=== PATIENT | female | born 1975 | race Hispanic/Latino ===

== ENCOUNTER 2018-03-01 13:04 | Outpatient (CLI) | payer BC ==
--- NOTE | 2018-03-01 14:40 | ULT ---
LIMITED BILATERAL BREAST ULTRASOUND: Date: 03/01/18 PROVIDED CLINICAL HISTORY: Bilateral breast palpable abnormalities. FINDINGS: Limited sonographic interrogation of the right breast was performed in the region of palpable concern . There is an ill-defined, hypoechoic, shadowing mass present measuring at least 3.4 cm at the 9:30 p osition of the right breast, corresponding to the area of mammographic abnormality as well. Sonograph ic interrogation of the right axilla demonstrates nonenlarged lymph nodes. Limited sonographic interrogation of the left breast in the region of palpable concern demonstrates n o sonographic abnormality. IMPRESSION: 1. BIRADS Category 5 - Highly suspicious for malignancy. Ultrasound guided breast biopsy is recommen ded on the right for 9:30 breast mass. 2. No sonographic or mammographic abnormality is evident in the region of palpable concern on the le ft. Negative imaging findings should not preclude further evaluation of a clinically suspicious area in this breast. The patient is referred back to her clinician. Findings and recommendations discussed with the patient and questions answered. POS: OFF
== END 2018-03-01 13:05 | disposition home or self-care (01) ==
LOC: BICMAMMO 13:04
PROVIDERS: ATTEND Obstetrics & Gynecology
DX: N63.10 Unspecified lump in the right breast, unspecified quadrant (principal); N63.20 Unspecified lump in the left breast, unspecified quadrant
CPT/HCPCS: 77066; G0279

== ENCOUNTER → 2018-03-12 | Day surgery (SDC) | payer BC ==
--- NOTE | 2018-03-12 14:51 | ULT ---
ULTRASOUND DIRECTED RIGHT BREAST BIOPSY: History: Irregular right breast mass is associated with pleomorphic calcifications demonstrated at the 9:30 po sition right breast. FINDINGS: Real-time imaging of the area of concern shows a very ill-defined mass. The exact dimensions are diff icult but measure at least 2.7 cm in dimension. After informed consent was obtained, the patient was prepped and draped in normal sterile fashion. Lo katlyn anesthesia was obtained with 1% Xylocaine mixed with sodium bicarb. A 14 gauge biopsy gun was use d for a series of three core biopsies. Subsequently, a biopsy clip was deployed. A post biopsy mammog anni showed good positioning of the clip within the mass. The needle was withdrawn and hemostatis was obtained. The patient tolerated the procedure well without any immediate complications. IMPRESSION: Ultrasound directed biopsy of right breast mass as described above. POS: OFF
== END ==
LOC: BICULT 12:44
PROVIDERS: ATTEND Obstetrics & Gynecology
PROC: 0HBT3ZX Excision of Right Breast, Percutaneous Approach, Diagnostic (ICD-10-PCS; principal; 2018-03-12)
DX: C50.411 Malignant neoplasm of upper-outer quadrant of right female breast (principal)
CPT/HCPCS: 19100; 76942; 88305

== ENCOUNTER 2018-03-28 09:00 | Outpatient (CLI) | payer BC ==
--- NOTE | 2018-03-28 10:26 | CT ---
CONTRAST ENHANCED CT IMAGES OF THE CHEST, ABDOMEN, AND PELVIS: History: Breast cancer. Technique: Contrast enhanced CT images of the chest, abdomen, and pelvis obtained after administratio n of IV and oral contrast. FINDINGS: The lung parenchyma is unremarkable with no evidence of masses or lesions. No evidence of pleural or pericardial effusions seen. No evidence of mediastinal, axillary or hilar lesions seen. The osseous lesions are unremarkable. CT ABDOMEN/PELVIS: The liver, spleen, gallbladder, pancreas, adrenal glands and kidneys are unremarkable. No dilated loops of bowel seen. Normal appendix is visualized. The colon demonstrates no evidence of masses or lesions. The pelvis is unremarkable. IMPRESSION: Normal contrast enhanced CT images of the chest, abdomen, and pelvis. POS: [facility]
== END 2018-03-28 09:01 | disposition home or self-care (01) ==
LOC: BICCT 09:00
PROVIDERS: ATTEND Internal Medicine Hematology & Oncology
DX: C50.919 Malignant neoplasm of unspecified site of unspecified female breast (principal)
CPT/HCPCS: 71260; 74177

== ENCOUNTER 2018-04-08 06:11 | Outpatient (CLI) | payer BC ==
[2018-04-08 09:58] LABS: #Basophils 0.1 thou/uL (0.0-0.2); #Eosinphils 0.1 thou/uL (0.0-0.7); #Lymphocytes 1.2 thou/uL (1.20-3.40); #Monocytes 0.7 thou/uL (0.11-0.59); #Neutrophils 3.4 thou/uL (1.40-6.50); %Basophils 0.9 % (0.0-1.0); %Eosinophils 1.4 % (0.0-10.0); %Lymphocytes 22.2 % (21.0-51.0); %Monocytes 12.4 % (0.0-10.0); Hemoglobin 13.2 g/dL (12.0-16.0); Mean Corpuscular Hemoglobin 28.1 pg (27.0-31.0); Mean Corpuscular Volume 82.7 fL (78.0-98.0); Mean Platelet Volume 6.9 fL (7.4-10.4); Platelet Count 322 thou/uL (130-400); RBC Distribution Width 12.7 % (11.5-14.5); Red Blood Cell (RBC) Count 4.71 mill/uL (4.20-5.40); White Blood Cell (WBC) Count 5.4 thou/uL (4.8-10.8)
[2018-04-08 10:17] LABS: Anion Gap 13 mmol/L (10-20); BUN (Urea Nitrogen) 9 mg/dL (7.0-18.7); Calc. Creatinine Clearance 0 mL/min (70-130); Calcium 9.6 mg/dL (7.8-10.44); Carbon Dioxide 23 mmol/L (22-29); Chloride 102 mmol/L (98-107); Estimated GFR-MDRD Greater than 90; Glucose 90 mg/dL (70-105); Potassium 4.1 mmol/L (3.5-5.1); Sodium 134 mmol/L (136-145)
== END 2018-04-08 06:12 | disposition home or self-care (01) ==
LOC: LABBT 06:11
PROVIDERS: ATTEND Surgery
DX: Z01.812 Encounter for preprocedural laboratory examination (principal); C50.911 Malignant neoplasm of unspecified site of right female breast
CPT/HCPCS: 80048; 85025

== ENCOUNTER 2018-04-11 07:00 | Day surgery (SDC) | payer BC ==
[2018-04-08 08:25] VITALS: BMI 30.7
[2018-04-11] MEDS ORDERED: CEFAZOLIN 2 GM/50 ML BAG ONE (10:39)
--- NOTE | 2018-04-11 11:09 | NM ---
RADIONUCLIDE LYMPHOSCINTIGRAPHY RIGHT BREAST: HISTORY: Right breast cancer. FINDINGS: After explaining the procedure and answering all questions, a sterile technique was then used to inje ct into the dermis a total volume of 1 mL containing 434 millicuries technetium 99m filtered sulfur c olloid, at the 12 o'clock, 3 o'clock, 6 o'clock, and 9 o'clock periareolar positions of the right raffaele ast. Injection sites were massaged by the patient, and imaging was performed. At 1 hour, a focus of uptake overlies the axillary tail of the right breast. The skin overlying the lymph node was marked , and the patient was sent to day surgery in good condition. IMPRESSION: Technically successful lymphoscintigraphy, revealing sentinel lymph node at the right axillary tail. POS: [facility]
[2018-04-11] MEDS ORDERED: Bupivacaine/Epinephrine 0.25% 30 ML VIAL ONE (11:51)
[2018-04-11] MEDS ORDERED: Lidocaine 2% PF 5 ML VIAL ONE (11:51)
--- NOTE | 2018-04-11 11:53 | MMO ---
MAMMOGRPAHIC GUIDED NEEDLE LOCALIZATION RIGHT BREAST MASS: HISTORY: Right breast cancer. FINDINGS: After explaining the procedure and answering all questions, the localization clip and mass at the lat eral aspect of the right breast were visualized. Sterile technique, buffered local anesthesia, mammo graphic guidance, and a lateral approach were used to carefully advance a 7.5 cm [place] needle and wir e through the posterior aspect of the mass, medially deep to the localization clip. The clip lies ap proximately 1 cm from the needle tip. the wire was deployed to hold position. Final images were obt ained and sent with the patient for day surgery. The patient tolerated the procedure well and was tr ansferred in good condition. IMPRESSION: Technically successful needle localization right breast mass. POS: [facility]
[2018-04-11] MEDS ORDERED: Fentanyl 100 MCG/2 ML VIAL ONE ×2 (12:10→13:50)
[2018-04-11] MEDS ORDERED: Ondansetron PF 4 MG/2 ML Vial ONE (13:03)
[2018-04-11] MEDS ORDERED: PROPOFOL 200 MG/20 ML VIAL ONE (13:03)
[2018-04-11] MEDS ORDERED: Ketorolac Tromethamine 30 MG/ML VIAL ONE (13:03)
[2018-04-11] MEDS ORDERED: Dexamethasone 20 MG/5 ML VIAL ONE (13:03)
[2018-04-11] MEDS ORDERED: Lidocaine 1% PF 5 ML VIAL ONE (13:03)
[2018-04-11] MEDS ORDERED: Morphine 4 MG/ML VIAL ONE (14:08)
[2018-04-11] MEDS ORDERED: Morphine 2 MG/ML SYRINGE ONE (14:29)
--- NOTE | 2018-04-11 14:36 | MMO ---
SURGICAL SPECIMEN MAMMOGRAPHY: HISTORY: Right breast cancer. FINDINGS: Mammographic evaluation of surgical specimen obtained by Dr. Mckenzie shows the localization wire, the biopsy clip, and microcalcifications to be present within the specimen. POS: [facility]
--- NOTE | 2018-04-12 12:47 | OP ---
DATE OF PROCEDURE: 04/11/2018 PREOPERATIVE DIAGNOSIS: Right breast invasive ductal cell carcinoma, clinical stage T2 N0 Mx. POSTOPERATIVE DIAGNOSIS: Right breast invasive ductal cell carcinoma, clinical stage T2 N0 Mx. PROCEDURES PERFORMED: 1. Right partial mastectomy after needle localization. 2. Right deep axillary node biopsy (sentinel node protocol). ANESTHESIA: General. ESTIMATED BLOOD LOSS: Minimal. COMPLICATIONS: None. SPECIMENS: 1. There were two sentinel nodes obtained. 2. Right breast mass marked with two short superior, one long lateral, sent to Path for final diagnosis. Additional medial margin of tissue is obtained. DESCRIPTION OF PROCEDURE: The patient underwent preoperative placement of needle localization wire and had lymphoscintigraphy performed, which showed uptake in the right axilla, taken to the operating room and her right breast, chest, arm, and axilla were prepped and draped in a sterile fashion. A 5 mL of methylene blue dye had been infiltrated under the nipple and massaged for 5 minutes before the procedure. Incision was made on the inferior hairline of the right axilla. Clavipectoral fascia was entered using the Neoprobe. Two sentinel nodes were found with high counts on the back table. The background count dropped to near zero. These were sent for final pathology. The wound was irrigated. Local anesthetic was applied. The right axillary incision was closed using 3-0 Vicryl, 4-0 Monocryl, and Dermabond. Next, a periareolar incision was made in the right breast. Flaps were raised superior, inferior, medially, and laterally around the needle localization wire. Specimen was marked and sent to x-ray, which revealed previous biopsy clip to be in the specimen. It was then sent to Path for final diagnosis. Because there was persistent fibrous type tissue present on the medial aspect of the biopsy cavity, additional medial margin was performed with stitch placed on new margin and sent to Path for final diagnosis. The wound was irrigated. Local anesthetic was applied. The wound was closed in 3-0 Vicryl, 4-0 Monocryl, and Dermabond. The patient was then returned to Recovery in stable condition. All instrument counts, needle counts, and lap counts were correct. Job ID: [id number]
== END 2018-04-11 17:00 | disposition home or self-care (01) ==
LOC: SDC 07:00
PROVIDERS: ATTEND Surgery
PROC: 07B50ZX Excision of Right Axillary Lymphatic, Open Approach, Diagnostic (ICD-10-PCS; principal; 2018-04-11)
PROC: 0HBT0ZZ Excision of Right Breast, Open Approach (ICD-10-PCS; principal; 2018-04-11)
DX: C50.411 Malignant neoplasm of upper-outer quadrant of right female breast (principal); C77.3 Secondary and unspecified malignant neoplasm of axilla and upper limb lymph nodes; E78.00 Pure hypercholesterolemia, unspecified; Z17.0 Estrogen receptor positive status [ER+]; Z79.899 Other long term (current) drug therapy
CPT/HCPCS: 19281; 76098; 78195; 88307; 88342; 96374; A9541; J1100; J1885; J2001; J2270; J2405; J2704; J3010; Q9968

== ENCOUNTER 2018-04-26 12:43 | Day surgery (SDC) | payer BC ==
[2018-04-25 11:24] VITALS: BMI 31.1
[2018-04-26] MEDS ORDERED: CEFAZOLIN 2 GM/50 ML BAG ONE (13:09)
[2018-04-26] MEDS ORDERED: Bupivacaine HCl 0.5%/Epinephrine 1:200,000/PF 30 ml Vial ONE (13:58)
[2018-04-26] MEDS ORDERED: Lidocaine 2% PF 5 ML VIAL ONE (13:58)
[2018-04-26] MEDS ORDERED: Fentanyl 100 MCG/2 ML VIAL ONE (14:01)
[2018-04-26] MEDS ORDERED: Midazolam HCl 2 mg/2 ml Vial ONE (14:01)
--- NOTE | 2018-04-26 15:36 | OP ---
DATE OF PROCEDURE: 04/26/2018 PREOPERATIVE DIAGNOSIS: Breast cancer. POSTOPERATIVE DIAGNOSIS: Breast cancer. PROCEDURE: Tunnelled central line subcutaneous port (MediPort CT injectable). ANESTHESIA: General. ESTIMATED BLOOD LOSS: Minimal. COMPLICATIONS: None. SPECIMENS: None. FINDINGS: Tip of the catheter was at the atriocaval junction. DESCRIPTION OF PROCEDURE: The patient was taken to the operating room and laid supine on the operating room table. After general anesthetic was obtained, bilateral neck and chest was prepped and draped in a sterile fashion. Local anesthetic was infiltrated over the left internal jugular vein. Internal jugular vein was cannulated using a 22-gauge finder needle followed by a Seldinger needle. Wire was passed into the superior vena cava under fluoro guidance, small aneudy was made at the wire entrance site. A separate 3-cm incision was made in the left upper chest. Subcutaneous pocket was made below the lower incision. Tubing from the MediPort tunneled from the inferior to the superior incision and suture sheath was placed over the wire into the superior vena cava under fluoro guidance. The dilator and wire were removed and the catheter was sewn into the sheath. The sheath was peeled away. The tip of the catheter was at the atriocaval junction. The MediPort tubing cut to fit the MediPort at the lower incision, connected to the MediPort, the MediPort was sewn to the chest wall in the subcutaneous pocket using Prolene. MediPort flushes and draws blood without difficulty. It was flushed with a heparin flush. The wounds were irrigated and closed using 3-0 Vicryl, 4-0 Monocryl, and Dermabond. The patient was then sent to Recovery in stable condition. All instrument counts, needle counts, and lap counts were correct. Job ID: [id number]
[2018-04-26] MEDS ORDERED: HYDROcodone/Acetaminophen 5/325 mg Tablet ONE (16:02)
--- NOTE | 2018-04-26 16:39 | RAD ---
PORTABLE AP CHEST: Date: 04/26/18 HISTORY: Post MediPort placement. COMPARISON: None available. FINDINGS: A left internal jugular vein MediPort catheter is noted in place with tip overlying the distal SVC. A portion of the MediPort catheter is not visualized in the lower neck. There is no pneumothorax seen. There are linear densities in left lung base, which could be related to atelectasis, but follow-up i s suggested. No pleural effusion is seen. The right lung is clear. The cardiac silhouette is magnifie d by projection. Osseous structures are intact. There is linear scarring versus atelectasis in the ri t lung apex. IMPRESSION: 1. Left internal jugular vein MediPort catheter in place without evidence of a pneumothorax. 2. Linear densities at the left lung base which may be related to mild atelectasis or scarring. Ther e is probably minimal scarring in the right lung apex. POS: [facility]
== END 2018-04-26 16:50 | disposition home or self-care (01) ==
LOC: SDC 12:43
PROVIDERS: ATTEND Surgery
PROC: 0JH63WZ Insertion of Totally Implantable Vascular Access Device into Chest Subcutaneous Tissue and Fascia, Percutaneous Approach (ICD-10-PCS; principal; 2018-04-26)
DX: C50.911 Malignant neoplasm of unspecified site of right female breast (principal); C77.9 Secondary and unspecified malignant neoplasm of lymph node, unspecified; E78.00 Pure hypercholesterolemia, unspecified; Z17.0 Estrogen receptor positive status [ER+]; Z79.899 Other long term (current) drug therapy
CPT/HCPCS: 71045; C1788; J0670; J1642; J2001; J2250; J3010

== ENCOUNTER 2018-08-13 03:35 | Outpatient (CLI) | payer BC ==
[2018-08-13 09:39] LABS: #Basophils 0.1 thou/uL (0.0-0.2); #Eosinphils 0.1 thou/uL (0.0-0.7); #Lymphocytes 1.5 thou/uL (1.20-3.40); #Monocytes 0.4 thou/uL (0.11-0.59); #Neutrophils 2.6 thou/uL (1.40-6.50); %Basophils 1.2 % (0.0-1.0); %Eosinophils 1.2 % (0.0-10.0); %Lymphocytes 32.8 % (21.0-51.0); %Monocytes 8.4 % (0.0-10.0); %Neutrophils 56.5 % (42.0-75.0); Hemoglobin 12.3 g/dL (12.0-16.0); Mean Corpuscular HGB CONC 33.4 g/dL (32.0-36.0); Mean Corpuscular Hemoglobin 28.9 pg (27.0-31.0); Mean Corpuscular Volume 86.3 fL (78.0-98.0); Mean Platelet Volume 6.8 fL (7.4-10.4); Platelet Count 306 thou/uL (130-400); RBC Distribution Width 14.5 % (11.5-14.5); Red Blood Cell (RBC) Count 4.28 mill/uL (4.20-5.40); White Blood Cell (WBC) Count 4.6 thou/uL (4.8-10.8)
[2018-08-13 09:58] LABS: Anion Gap 13 mmol/L (10-20); BUN (Urea Nitrogen) 10 mg/dL (7.0-18.7); Calc. Creatinine Clearance 0 mL/min (70-130); Carbon Dioxide 25 mmol/L (22-29); Chloride 105 mmol/L (98-107); Estimated GFR-MDRD Greater than 90; Glucose 105 mg/dL (70-105); Potassium 3.6 mmol/L (3.5-5.1); Sodium 139 mmol/L (136-145)
== END 2018-08-13 03:36 | disposition home or self-care (01) ==
LOC: LABBT 03:35
PROVIDERS: ATTEND Surgery
DX: Z01.812 Encounter for preprocedural laboratory examination (principal); C50.919 Malignant neoplasm of unspecified site of unspecified female breast
CPT/HCPCS: 80048; 85025

== ENCOUNTER 2018-08-20 06:02 | Inpatient (IN) | payer BC ==
[2018-08-13 08:24] VITALS: BMI 32.9
[2018-08-20] MEDS ORDERED: Midazolam HCl 2 mg/2 ml Vial ONE ×2 (06:27→07:02)
[2018-08-20] MEDS ORDERED: Fentanyl 250 MCG/5 ML VIAL ONE (06:27)
[2018-08-20] MEDS ORDERED: Promethazine HCl 25 MG/ML VIAL SLOW IVP PRN (09:09)
[2018-08-20] MEDS ORDERED: Promethazine HCl 25 MG/ML VIAL IM PRN ×2 (09:09→09:43)
[2018-08-20] MEDS ORDERED: Ondansetron HCl/PF 4 MG/2 ML Vial IVP PRN (09:09)
[2018-08-20] MEDS ORDERED: Morphine 4 MG/ML VIAL SLOW IVP PRN (09:43)
[2018-08-20] MEDS ORDERED: Ondansetron PF 4 MG/2 ML Vial IVP PRN (09:43)
[2018-08-20] MEDS ORDERED: Dextrose 50% Abboject 50 ML SYRINGE SLOW IVP PRN (09:43)
[2018-08-20] MEDS ORDERED: hydrALAZINE 20 MG/ML VIAL SLOW IVP PRN (09:43)
[2018-08-20] MEDS ORDERED: Dextrose 5% in Water 1,000 ML IV PRN (09:43)
[2018-08-20] MEDS ORDERED: HYDROcodone/Acetaminophen 7.5/325 mg Tablet PO PRN ×2 (09:43)
[2018-08-20] MEDS ORDERED: Morphine 2 MG/ML SYRINGE SLOW IVP PRN (09:43)
[2018-08-20] MEDS ORDERED: Fentanyl 100 MCG/2 ML VIAL ONE (09:47)
--- NOTE | 2018-08-20 10:32 | OP ---
DATE OF PROCEDURE: 08/20/2018 PREOPERATIVE DIAGNOSIS: Local invasive right breast cancer, status post neoadjuvant chemotherapy. POSTOPERATIVE DIAGNOSIS: Local invasive right breast cancer, status post neoadjuvant chemotherapy. PROCEDURE PERFORMED: Bilateral simple mastectomy. ANESTHESIA: General. COMPLICATIONS: None. SPECIMENS: Right breast marked with two short superior and one long lateral. Left breast marked with two short superior and one long lateral. Additional margin where the previous lumpectomy cavity touched the pectoralis muscle was taken with stitch on new margin. DESCRIPTION OF PROCEDURE: The patient was taken to the operating room and laid supine on the operating room table. After general anesthetic was obtained, bilateral chest, axilla, and arm were prepped and draped in a sterile fashion. An elliptical incision was performed on the left to ellipse out the nipple-areolar complex. Flaps were raised superior to the clavicle, medially to the sternum, inferior to inframammary fold, and laterally to latissimus dorsi muscle. The breast tissue was rotated off the chest wall. The pectoralis major fascia was taken with the specimen. All perforators were cauterized. Meticulous hemostasis was obtained. The chest cavity was irrigated. A 19 round drain was brought out through a separate stab incision, sewn in place using 2-0 silk. The incision was closed using 3-0 Vicryl, 4-0 Monocryl, and Dermabond. Next, a similar incision was made in the right chest to ellipse out the previous incision and the nipple-areolar complex. Again, flaps were raised superior to the clavicle, medially to the sternum, inferior to inframammary arch, and laterally to latissimus dorsi muscle. The breast was rotated off the chest wall with the pectoralis fascia left with the specimen. In the area posterior to previous lumpectomy, there was some scar tissue type changes abutting the muscle. In this area, the muscle was removed. A stitch was placed on the new margin and it was sent separate as final posterior margin. The breast cavity was irrigated. Meticulous hemostasis was obtained. A 19 round drain brought out through a separate stab incision, left in the breast cavity, sewn in place using silk. The breast was closed using 3-0 Vicryl, 4-0 Monocryl, and Dermabond. The patient was sent to Recovery in stable condition. All instrument counts, needle counts, and lap counts were correct. Job ID: [id number]
[2018-08-20] MEDS ORDERED: Glycopyrrolate 0.2 MG/ML 5 ML SYRINGE ONE (11:35)
[2018-08-20] MEDS ORDERED: Rocuronium Bromide 10 MG/ML (10ML VIAL) ONE (11:35)
[2018-08-20] MEDS ORDERED: PROPOFOL 200 MG/20 ML VIAL ONE (11:35)
[2018-08-20] MEDS ORDERED: Dexamethasone 20 MG/5 ML VIAL ONE (11:35)
[2018-08-20] MEDS ORDERED: Ketorolac Tromethamine 30 MG/ML VIAL ONE (11:35)
[2018-08-20] MEDS ORDERED: Ondansetron PF 4 MG/2 ML Vial ONE (11:35)
[2018-08-20] MEDS ORDERED: Lidocaine 1% PF 5 ML VIAL ONE (11:35)
[2018-08-20] MEDS: Sodium Chloride 0.9% 1,000 ML IV SCH (12:04)
[2018-08-20] MEDS ORDERED: Atorvastatin Calcium 20 MG TAB PO SCH (21:00)
[2018-08-20] MEDS: Famotidine 20 MG TAB PO SCH (21:22)
[2018-08-21] MEDS: Sodium Chloride 0.9% 1,000 ML IV SCH (00:25)
[2018-08-21] MEDS: Famotidine 20 MG TAB PO SCH (09:36)
[2018-08-21 11:10] VITALS: BP 136/68; TEMP 98.6
--- NOTE | 2018-08-22 02:30 | DIS ---
DATE OF ADMISSION: 08/20/2018 DATE OF DISCHARGE: 08/21/2018 ADMITTING DIAGNOSIS: Right breast cancer. DISCHARGE DIAGNOSES: Right breast cancer. PROCEDURE: Bilateral simple mastectomy by Dr. Mckenzie without complications. CONDITION ON DISCHARGE: Improved. STAFF: Narendra Mckenzie MD HOSPITAL COURSE: On postop day 1, the patient's pain is controlled. She is discharged home. She will follow up with me in 1 week for drain removal. Prescriptions for [place] and Zofran sent to [facility]. Job ID: [id number]
== END 2018-08-21 11:39 | disposition home or self-care (01) | DRG 583 ==
LOC: SDC 06:02 → 3SE 09:59
PROVIDERS: ADMIT Surgery; ATTEND Surgery
PROC: 0HBV0ZZ Excision of Bilateral Breast, Open Approach (ICD-10-PCS; principal; 2018-08-20)
DX: C50.911 Malignant neoplasm of unspecified site of right female breast (principal); Z92.21 Personal history of antineoplastic chemotherapy
CPT/HCPCS: 88307; 88341; 88342; J0131; J0690; J1100; J1885; J2001; J2250; J2405; J2704; J3010

== ENCOUNTER 2019-05-09 07:26 | Outpatient (CLI) | payer BC ==
--- NOTE | 2019-05-09 11:02 | CT ---
CT SCAN OF THE CHEST WITH IV CONTRAST CT SCAN OF THE ABDOMEN WITH IV CONTRAST: HISTORY: Breast cancer. Primary malignant neoplasm upper outer quadrant of the right female breast. COMPARISON: 03/28/2018. FINDINGS: No evidence of mediastinal, hilar, axillary, or internal mammary mass or lymphadenopathy is seen. No pleural or pericardial effusions are identified. There is scarring in the peripheral aspect of the right upper lobe. There are small patchy areas of reticulonodular infiltrates in the posteromedial a spects of the lower lobes. The liver, spleen, pancreas, adrenal glands, and kidneys are normal. No calcified gallstones are see n. No free air, free fluid, or lymphadenopathy is seen in the abdomen. The small bowel loops are no t abnormally dilated. Uterus is present. No osteolytic or osteoblastic lesions are seen. IMPRESSION: Mild patchy reticulonodular infiltrates in the lower lobes, otherwise unremarkable exam. POS: [facility]
[2019-05-09] MEDS ORDERED: Iopamidol-370 76% 500 ML 1 ML ONE (11:56)
== END 2019-05-09 07:27 | disposition home or self-care (01) ==
LOC: BICCT 07:26
PROVIDERS: ATTEND Internal Medicine Hematology & Oncology
DX: C50.411 Malignant neoplasm of upper-outer quadrant of right female breast (principal); R91.8 Other nonspecific abnormal finding of lung field
CPT/HCPCS: 71260; 74160

== ENCOUNTER 2019-11-19 07:34 | Outpatient (CLI) | payer BC, OTHER ==
[2019-11-19 11:26] LABS: Hemoglobin 12.9 g/dL (12.0-16.0); Mean Corpuscular HGB CONC 32.3 g/dL (32.0-36.0); Mean Corpuscular Hemoglobin 27.2 pg (27.0-31.0); Mean Corpuscular Volume 84.2 fL (78.0-98.0); Mean Platelet Volume 7.2 fL (7.4-10.4); Platelet Count 314 thou/uL (130-400); RBC Distribution Width 12.2 % (11.5-14.5); Red Blood Cell (RBC) Count 4.75 mill/uL (4.20-5.40); White Blood Cell (WBC) Count 4.3 thou/uL (4.8-10.8)
[2019-11-19 11:42] LABS: BHCG - Serum Negative (NEGATIVE); Pregs Control Background? CLEAR/WHITE (CLR/WHITE); Pregs Control Bar Appear? YES (CONTROL BAR)
[2019-11-19 17:22] LABS: SARS-CoV-2 MS2 Positive; SARS-CoV-2 N Gene Negative; SARS-CoV-2 S Gene Negative; SARS-CoV-2 by NAA Not Detected (NotDetected); SARS-CoV-2 orf1ab Negative
== END 2019-11-19 07:35 | disposition home or self-care (01) ==
LOC: LABBT 07:34
PROVIDERS: ATTEND Obstetrics & Gynecology
DX: Z01.812 Encounter for preprocedural laboratory examination (principal); Z20.828 Contact with and (suspected) exposure to other viral communicable diseases; Z17.0 Estrogen receptor positive status [ER+]; Z85.3 Personal history of malignant neoplasm of breast
CPT/HCPCS: 84703; 85027; 87635; U0003

== ENCOUNTER 2021-07-21 08:00 | Outpatient (CLI) | payer BC | END 2021-07-21 08:01 | disposition home or self-care (01) | LOC: BICCT 08:00 | PROVIDERS: ATTEND Internal Medicine Hematology & Oncology | DX: C50.411 Malignant neoplasm of upper-outer quadrant of right female breast (principal) | CPT/HCPCS: 71260; 74177 ==

== ENCOUNTER 2021-07-29 08:20 | Outpatient (CLI) | payer BC | END 2021-07-29 08:21 | disposition home or self-care (01) | LOC: NM 08:20 | PROVIDERS: ATTEND Internal Medicine Hematology & Oncology | DX: M25.552 Pain in left hip (principal); C50.411 Malignant neoplasm of upper-outer quadrant of right female breast; C79.51 Secondary malignant neoplasm of bone | CPT/HCPCS: 78306; A9503 ==

== ENCOUNTER 2021-08-04 08:00 | Outpatient (CLI) | payer BC | END 2021-08-04 08:01 | disposition home or self-care (01) | LOC: PET 08:00 | PROVIDERS: ATTEND Internal Medicine Hematology & Oncology | DX: C50.411 Malignant neoplasm of upper-outer quadrant of right female breast (principal); C79.51 Secondary malignant neoplasm of bone | CPT/HCPCS: 78815; A9552 ==

== ENCOUNTER 2021-08-11 07:31 | Outpatient (CLI) | payer BC | END 2021-08-11 07:32 | disposition home or self-care (01) | LOC: BICMRI 07:31 | PROVIDERS: ATTEND Internal Medicine Hematology & Oncology | DX: R93.7 Abnormal findings on diagnostic imaging of other parts of musculoskeletal system (principal); C50.411 Malignant neoplasm of upper-outer quadrant of right female breast; C79.51 Secondary malignant neoplasm of bone; M89.9 Disorder of bone, unspecified ==

== ENCOUNTER 2021-11-21 07:53 | Outpatient (CLI) | payer BC ==
[2021-11-21] MEDS ORDERED: Iopamidol 370 76% 100 ML VIAL ONE (09:36)
== END 2021-11-21 07:54 | disposition home or self-care (01) ==
LOC: CT 07:53
PROVIDERS: ATTEND Internal Medicine Hematology & Oncology
DX: C79.51 Secondary malignant neoplasm of bone (principal); C50.411 Malignant neoplasm of upper-outer quadrant of right female breast; M89.8X8 Other specified disorders of bone, other site; Z90.10 Acquired absence of unspecified breast and nipple
CPT/HCPCS: 71260; 74177; 78306; A9503; Q9967

== ENCOUNTER 2021-11-22 12:30 | Outpatient (CLI) | payer BC | END 2021-11-22 12:31 | disposition home or self-care (01) | LOC: SCSMRI 12:30 | PROVIDERS: ATTEND Internal Medicine Hematology & Oncology | DX: C50.411 Malignant neoplasm of upper-outer quadrant of right female breast (principal); C79.51 Secondary malignant neoplasm of bone; M99.85 Other biomechanical lesions of pelvic region ==

== ENCOUNTER 2022-03-23 08:44 | Outpatient (CLI) | payer BC ==
[2022-03-23] MEDS ORDERED: Iopamidol 370 76% 100 ML VIAL ONE (11:35)
== END 2022-03-23 08:45 | disposition home or self-care (01) ==
LOC: CT 08:44
PROVIDERS: ATTEND Internal Medicine Hematology & Oncology
DX: C79.51 Secondary malignant neoplasm of bone (principal); C50.411 Malignant neoplasm of upper-outer quadrant of right female breast
CPT/HCPCS: 71260; 74177; 78306; A9503; Q9967

== ENCOUNTER 2022-07-31 08:35 | Outpatient (CLI) | payer BC ==
[2022-07-31] MEDS ORDERED: Iopamidol 370 76% 100 ML VIAL ONE (09:44)
== END 2022-07-31 08:36 | disposition home or self-care (01) ==
LOC: NM 08:35
PROVIDERS: ATTEND Internal Medicine Hematology & Oncology
DX: C79.51 Secondary malignant neoplasm of bone (principal); C50.411 Malignant neoplasm of upper-outer quadrant of right female breast; D70.8 Other neutropenia
CPT/HCPCS: 71260; 74177; 78306; A9503

== ENCOUNTER 2023-01-31 08:28 | Outpatient (CLI) | payer BC | END 2023-01-31 08:29 | disposition home or self-care (01) | LOC: CT 08:28 | PROVIDERS: ATTEND Internal Medicine Hematology & Oncology | DX: C50.411 Malignant neoplasm of upper-outer quadrant of right female breast (principal); C79.51 Secondary malignant neoplasm of bone; D70.8 Other neutropenia | CPT/HCPCS: 71260; 74177; 78306; A9503 ==

== ENCOUNTER 2023-05-24 11:53 | Observation (INO) | payer BC ==
[2023-05-24 12:38] LABS: #Monocytes 0.1 thou/uL (0.11-0.59); #Neutrophils 1.2 thou/uL (1.40-6.50); %Basophils 1.8 % (0.0-1.0); %Eosinophils 0.4 % (0.0-10.0); %Lymphocytes 38.4 % (21.0-51.0); %Monocytes 6.3 % (0.0-10.0); %Neutrophils 52.2 % (42.0-75.0); Hematocrit 42.2 % (36.0-47.0); Hemoglobin 14.7 g/dL (12.0-16.0); Mean Corpuscular HGB CONC 34.8 g/dL (32.0-36.0); Mean Corpuscular Hemoglobin 33.1 pg (27.0-31.0); Mean Platelet Volume 8.8 fL (7.4-10.4); Platelet Count 377 10x3/uL (130-400); RBC Distribution Width 13.4 % (11.5-14.5); Red Blood Cell (RBC) Count 4.44 mill/uL (4.20-5.40); White Blood Cell (WBC) Count 2.2 10x3/uL (4.8-10.8)
[2023-05-24 13:02] LABS: ALT (SGPT) 17 U/L (8-55); AST (SGOT) 16 U/L (5-34); Alkaline Phosphatase 50 U/L (40-110); Anion Gap 12 mmol/L (10-20); BUN (Urea Nitrogen) 13 mg/dL (7.0-18.7); Bilirubin, Total 0.8 mg/dL (0.2-1.2); Calc. Creatinine Clearance 0 mL/min (70-130); Carbon Dioxide 24 mmol/L (22-29); Chloride 106 mmol/L (98-107); Estimated GFR 86; Globulin 3.3 g/dL (2.4-3.5); Glucose 90 mg/dL (70-105); Protein, Total 8.3 g/dL (6.0-8.3); Sodium 138 mmol/L (136-145)
[2023-05-24] MEDS ORDERED: Ketorolac Tromethamine 30 MG (1 mL) VIAL ONE (13:28)
[2023-05-24] MEDS ORDERED: Cefepime 2 GM VIAL ONE (13:29)
[2023-05-24] MEDS ORDERED: Ondansetron PF 4 MG/2 ML Vial ONE (13:29)
[2023-05-24] MEDS ORDERED: Sodium Chloride 0.9% 100 ML ONE (13:29)
[2023-05-24] MEDS ORDERED: cefTRIAXone (ROCEPHIN) 2 GM VIAL ONE (13:31)
[2023-05-24 14:26] LABS: Bilirubin Negative (Negative); Blood, Urine 2+ (Negative); CAUTI Indications for Culture Dysuria,urgency,freq; Clarity Clear (Clear); Glucose, Urine (Dipstick) Normal (Negative); Ketone, Urine Negative (Negative); Leukocyte 250 Leu/uL (Negative); Nitrite Negative (Negative); Protein, Urine (Dipstick) Negative (Neg-Trace); Specific Gravity, Urine 1.016 (1.002-1.036); Squamous Epithelial 0-3 HPF (0-3); Urobilinogen Normal mg/dL (Less than 2)
[2023-05-24 14:44] LABS: Bacteria/HPF 1+ HPF (None Seen); Transitional Epithelial 0-3 HPF (None Seen)
[2023-05-24 14:45] LABS: Urine Culture Reflex No No
[2023-05-24] MEDS ORDERED: Ondansetron ODT 4 MG TAB PO PRN (17:16)
[2023-05-24 17:18] VITALS: BMI 32.2
[2023-05-24] MEDS: Acetaminophen 325 MG TAB PO PRN (22:19)
[2023-05-25 04:41] LABS: #Monocytes 0.3 thou/uL (0.11-0.59); #Neutrophils 1.2 thou/uL (1.40-6.50); %Basophils 1.5 % (0.0-1.0); %Eosinophils 1.1 % (0.0-10.0); %Lymphocytes 45.1 % (21.0-51.0); %Monocytes 9.3 % (0.0-10.0); Mean Corpuscular HGB CONC 35.2 g/dL (32.0-36.0); Mean Corpuscular Hemoglobin 33.5 pg (27.0-31.0); Mean Corpuscular Volume 95.3 fl (78.0-98.0); Mean Platelet Volume 8.8 fL (7.4-10.4); Platelet Count 295 10x3/uL (130-400); RBC Distribution Width 13.5 % (11.5-14.5); Red Blood Cell (RBC) Count 3.43 mill/uL (4.20-5.40); White Blood Cell (WBC) Count 2.7 10x3/uL (4.8-10.8)
[2023-05-25 04:51] LABS: Hematocrit 32.7 % (36.0-47.0); Hemoglobin 11.5 g/dL (12.0-16.0)
[2023-05-25 05:04] LABS: Anion Gap 9 mmol/L (10-20); BUN (Urea Nitrogen) 15 mg/dL (7.0-18.7); Calc. Creatinine Clearance 114 mL/min (70-130); Calcium 8.9 mg/dL (7.8-10.44); Carbon Dioxide 25 mmol/L (22-29); Chloride 109 mmol/L (98-107); Estimated GFR 104; Glucose 93 mg/dL (70-105); Potassium 3.9 mmol/L (3.5-5.1); Sodium 139 mmol/L (136-145)
[2023-05-25] MEDS: cefTRIAXone\\ROCEPHIN 2 GM in Sodium Chloride 0.9% 100 ML IVPB SCH (13:34)
[2023-05-25 15:57] VITALS: BP 109/74; TEMP 98.2
== END 2023-05-25 17:05 | disposition home or self-care (01) ==
LOC: ERS 11:53 → MSONC 15:54
PROVIDERS: ADMIT Hospitalist; ATTEND Family Medicine
DX: N39.0 Urinary tract infection, site not specified (principal); B96.20 Unspecified Escherichia coli [E. coli] as the cause of diseases classified elsewhere; D72.819 Decreased white blood cell count, unspecified; N10 Acute pyelonephritis; Z90.710 Acquired absence of both cervix and uterus
CPT/HCPCS: 36415; 74177; 76770; 80048; 80053; 81001; 83605; 85025; 87086; 96365; 96366; 96375; 96376; G0378; J0692; J0696; J1885; J2405; J3490

== ENCOUNTER 2023-08-02 07:29 | Outpatient (CLI) | payer BC | END 2023-08-02 07:30 | disposition home or self-care (01) | LOC: CT 07:29 | PROVIDERS: ATTEND Internal Medicine Hematology & Oncology | DX: C50.411 Malignant neoplasm of upper-outer quadrant of right female breast (principal); C79.51 Secondary malignant neoplasm of bone | CPT/HCPCS: 71260; 74177; 78306; A9503 ==

== ENCOUNTER 2023-08-17 14:23 | Outpatient (CLI) | payer BC | END 2023-08-17 14:24 | disposition home or self-care (01) | LOC: BICMRI 14:23 | PROVIDERS: ATTEND Internal Medicine Hematology & Oncology | DX: C50.919 Malignant neoplasm of unspecified site of unspecified female breast (principal); R93.7 Abnormal findings on diagnostic imaging of other parts of musculoskeletal system; R60.0 Localized edema | CPT/HCPCS: 72197 ==

== ENCOUNTER 2024-02-14 08:57 | Outpatient (CLI) | payer BC | END 2024-02-14 08:58 | disposition home or self-care (01) | LOC: CT 08:57 | PROVIDERS: ATTEND Internal Medicine Hematology & Oncology | DX: C50.411 Malignant neoplasm of upper-outer quadrant of right female breast (principal); C79.51 Secondary malignant neoplasm of bone | CPT/HCPCS: 71260; 74177 ==

== ENCOUNTER 2025-01-16 07:31 | Outpatient (CLI) | payer BC ==
[2025-01-16] MEDS ORDERED: Iopamidol 370 76% 100 ML VIAL ONE (11:59)
== END 2025-01-16 07:32 | disposition home or self-care (01) ==
LOC: CT 07:31
PROVIDERS: ATTEND Internal Medicine Hematology & Oncology
DX: C50.411 Malignant neoplasm of upper-outer quadrant of right female breast (principal); C79.51 Secondary malignant neoplasm of bone; D70.8 Other neutropenia
CPT/HCPCS: 71260; 74177; Q9967